=== PATIENT | male | born 1970 | race Caucasian/White ===

== ENCOUNTER 2024-10-03 14:45 | Outpatient (RCR) | payer OTHER, SELFPAY | END 2025-01-31 23:59 | disposition home or self-care (01) | PROVIDERS: PCP Family Medicine; Visit Provider Family Medicine | DX: M54.50 Low back pain, unspecified (principal); Z51.89 Encounter for other specified aftercare | CPT/HCPCS: 97110; 97140; 97162 ==

== ENCOUNTER 2025-01-19 12:02 | Emergency (ER) | payer OTHER, SELFPAY ==
--- OUTSIDE RECORDS SUMMARY | 2025-01-19 12:04 | XMS_ITS | Clinical Summary ---
Author Organization [facility] [employer] [facility] Address [address] [place] [id number] Care Team Providers Care Char Filter Tank Tender Head Name Role Phone ThomasteMichelet garcia MD Primary Care Provider + Allergies No known active allergies Medications sildenafil citrate (VIAGRA) 50 mg tabletIndication s:Erectile dysfunction, unspecified erectile dysfunction type Take 1 Tablet (50 mg) by mouth once daily if needed for Erectile Dysfunction. Take 30 minutes to 4 hours before sexual activity. Max 100mg/24hr. 30 Tablet 11 4 Active rosuvastatin (CRESTOR) 20 mg tabletIndication s:Dyslipidemia, goal LDL below 70 Take 1 Tablet (20 mg) by mouth at bedtime. 90 Tablet 3 4 Active cyclobenzaprine (FLEXERIL) 10 mg tabletIndication s:Muscle spasm of back Take 1 Tablet (10 mg) by mouth at bedtime. 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 MRI lumbar spine Apr 2013. ~ April 2013:L4-L5 right interlaminar epidural steroid injection by Dr. Cruz. Encounters Date Type Department Care Team Description 11/28/2024 Refill [facility] [address] [place] [address] VotelMichelet MD Refill Request (Sildenafil Citrate) from Last 3 Months Immunizations Immunization Administration Dates Next Due Influenza, IIV4 03/22/2023,,05/05/2021,2017,03/21/2016 Influenza, IIV4 (=>6mos) MDV 03/19/2020,04/02/20 Influenza,CCIIV4 PRESERV FREE 09/05/2018 Td (Age >=7 Years) 06/20/2004 Td, Preservative Free (age > = 7 Years) 02/21/2024 Tdap 01/16/2014 Zoster (Shingrix-RZV, recombinant) 02/21/2024 Family History Medical History Relation Name Comments Heart Disease Father [place] and [place]. Good Health Mother Hypertension Mother Relation Name Status Comments Father Alive Mother Alive Social History Tobacco Use Types Packs/Day Years Used Date Smoking Tobacco: Never Smokeless Tobacco: Never Tobacco Cessation:Counseling Given: Yes Alcohol Use Standard Drinks/Week Comments No 0 (1 standard drink = 0.6 oz pur e alcohol) PHQ-2 Answer Date Recorded PHQ-2 TOTAL SCORE 0 03/13/2024 Social Connections Answer Date Recorded Do you often feel lonely or isolated from those around you? 0 02/21/2024 Financial Resource Strain Answer Date R ecorded Difficulty of Paying Living Expenses 3 02/21/2024 Difficulty of Paying Living Expenses Not on file 02/21/2024 Food Insecurity Answer Date Recorded Do you worry your food will run out before you are able to buy more? 1 02/21/2024 Transportation Needs Answer Date Record ed Does lack of transportation keep you from medica l appointments? 1 02/21/2024 Does lack of transportation keep you from work, meetings or getting things that you need? 1 02/21/2024 Housing Stability Answer Date Recorded What is your housing situation today? 1 02/21/2024 Utilities Answer Date Recorded Do you have trouble paying f or utilities (for example, heat, electricity, water, phone)? 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 Gender Identity Not on file Sexual Orientation Not on file Occupation Industry Job Start Date Job End Date [employer] Not on file Not on file Not on file Obstetrics History Last Filed Vital Signs Vital Sign Reading Time Taken Comments Blood Pressure 126/81 07/08/2024 4:30 PM [employer] IN[employer]ER Pulse 73 07/08/2024 4:30 PM [employer] INST[employer]ER Temperature 37.4 C (99.3 F) 02/21/2024 2:13 PM CDT Respiratory Rate 18 07/03/2021 3:22 PM [employer] INST[employer]ER Oxygen Saturation 97% 07/08/2024 4:30 PM [employer] SYSTEM INST[employer]ER Inhaled Oxygen Concentration - - Weight 100.1 kg (220 lb 9.6 oz) 07/08/2024 4:30 PM [employer] INST[employer]ER Height 177.8 cm (5' 10) 03/13/2024 1:44 PM CDT Body Mass Index 31.65 03/13/2024 1:44 PM CDT Plan of Treatment Health Maintenance Due Date Last Done Comments HIV for age 15-65 11/17/1986 Hepatitis C screening for ag e 18-79 11/17/1989 Hepatitis B series for 19+ ( 1 of 3 - 19+ 3-dose series) 11/17/1990 Pneumococcal series for age 50+ (1 of 2 - PCV) 11/17/1990 COVID-19 vaccine series ( season) 2024 05/04/2022, 05/18/2021, 11/04/2020, Additional history exists Zoster (shingles) series for age 50+ (2 of 2) 04/17/2024 02/21/2024 Influenza Vaccine (#1) 2025 3, 03/22/2022, 05/05/2021, Additional history exists BMI (ht and wt on same day) for age 18+ 03/13/2025 03/13/2024, 03/11/2024, 02/21/2024, Additional history exists Depression screening for age 12+ 03/14/2025 03/14/2024, 03/13/2024, 10/12/2022, Additional history exists Colonoscopy through age 75 12/19/2027 12/18/2017, Lipids for age 45-75 05/21/2029 05/21/2024, 02/21/2024, 10/12/2022, Additional history exists Tetanus booster 02/20/2034 02/21/2024, 12/31, 06/20/2004 Procedures Procedure Name Priority Date/Time Associated Diagnosis Comments LIPID PANEL W REFLEX MEASURED LDL Routine 05/21/2024 8:31 AM FIRE CONTROL SYSTEM INSTALLER Dyslipidemia, goal LDL below 70 High coronary artery calcium score COLONOSCOPY DIAGNOSTIC Routine 12/18/2017 12:00 AM CDT Diarrhea, unspecified type from Last 3 Months or Most Recently Relevant to Health Maintenance Results * (ABNORMAL) LIPID PANEL W REFLEX MEASURED LDL (05/21/2024 8:31 AM FIRE CONTROL SYSTEM INSTALLER) CHOLESTEROL, TOTAL 101 <200 mg/dL [facility] HDL CHOLESTEROL 38(L) > OR = 40 mg/dL [facility] TRIGLYCERIDES 72 <150 mg/dL [facility] LDL-CHOLESTEROL 48 mg/dL (calc) [facility] Comment: Reference range: <100 Desirable range <100 mg/dL for primary prevention; <70 mg/dL for patients with CHD or diabetic patients with > or = 2 CHD risk factors. LDL-C is now calculated using the Mikal-Mary calculation, which is a validated novel method providing better accuracy than the Friedewald equation in the estimation of LDL-C. Mikal SS et al. ALEJANDRO. 2013;310(19): 5140-5178 (http://education.[employer]/faq/YBH746) CHOL/HDLC RATIO 2.7 <5.0 (calc) [facility] NON HDL CHOLESTEROL 63 <130 mg/dL (calc) [facility] Comment: For patients with diabetes plus 1 major ASCVD risk factor, treating to a non-HDL-C goal of <100 mg/dL (LDL-C of <70 mg/dL) is considered a therapeutic option. Blood BLOOD SPECIMEN / Unknown 05/21/2024 8:31 AM FIRE CONTROL SYSTEM INSTALLER 05/21/2024 8:34 AM FIRE CONTROL SYSTEM INSTALLER Narrative [facility] - 05/22/2024 4:59 AM FIRE CONTROL SYSTEM INSTALLER FASTING:NO FASTING: NO Michelet Carbajal MD CHEMISTRY Final Re sult [facility] [address] [place] [address], [facility] [address] [place] [address] * COLONOSCOPY DIAGNOSTIC (12/18/2017 12:00 AM CDT) Mahad Cruz GI PROCEDURE ORD Final Res ult from Last 3 Months or Most Recently Relevant to Health Maintenance Insurance [employer] [facility] [employer] Care Teams Char Filter Tank Tender Head Relationship Specialty Start Date End Date Votel, Michelet Edouard MD [address] [place] [address] PCP - General 06/29/06
[2025-01-19 12:15] VITALS: BP 133/90; PULSE 88; RESP 20; TEMP 36.8; O2SAT 98; BMI 31.1
--- NOTE | 2025-01-19 12:24 | ED.WOUNDLAC ---
HPI - Wound/Laceration General Time Seen by Provider: 12:24 Date Seen: 01/19/25 Chief Complaint: Laceration/Wound Stated Complaint: L thumb laceration Time Seen by Provider: 01/19/25 12:24 Source: patient and RN notes reviewed Mode of arrival: ambulatory Limitations: no limitations History of Present Illness HPI narrative: Zohreh is a very pleasant 54-year-old gentleman [id number] with up-to-date tetanus who comes to the emergency room after sustaining an injury to his left thumb. 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 Somehow all that flipped and crushed his left thumb between the bucket in the pole causing lacerations to the bottom and top of his thumb. Immediately he was able to move it. He immediately proceeded to the ER recognizing that this was not something a bandage could fix. Related Data Home Medications ?Medication ?Instructions ?Recorded ?Confirmed rosuvastatin 20 mg tablet 20 mg PO QPM 01/19/25 01/19/25 sildenafil 50 mg tablet 50 - 100 mg PO DAILY PRN 01/19/25 01/19/25 Allergies Allergy/AdvReac Type Severity Reaction Status Date / Time No Known Drug Allergies Allergy Verified 01/19/25 12:12 Exam Narrative: Exam Narrative: Alert and oriented. Very pleasant well-spoken gentleman in no acute distress. Examination of the left from shows flexion extension against resistance to be intact. Sensation is also intact. He has sustained a laceration over the IP joint dorsal surface of the left thumb. This is measuring approximately 1.8 cm. This compromises epidermis and dermis. No underlying structures are seen. On the volar surface he has unfortunately sustained a large laceration which has caused a flap to occur. Distally the laceration starts over the distal phalanx on the lateral aspect. This continues down all the way to the skin over the MCP and then travels medially and up the medial aspect not quite to the IP joint. Epidermis dermis is compromises subcutaneous tissue is easy visualized I do not note any underlying structures however and I do not note any foreign body. Procedure: Wound was soaked in Hibiclens. The wounds were anesthetized with 1% lidocaine. Soaking then occurred again. No foreign bodies were noted. Three sutures of 5 0 Ethilon were placed in interrupted fashion on the dorsal thumb wound. Good wound approximation. Nine sutures of 5 0 Ethilon were placed in interrupted fashion on the volar surface of the thumb. Challenging given the amount of swelling we are noting but wound was approximated to the best of my ability. Const: Vital Signs, click to edit/add: Vital Signs - 24 hr 01/19/25 12:15 Temperature 98.3 F Pulse Rate [Pulse Oximeter] 88 Respiratory Rate 20 Blood Pressure [Ri ght Upper Arm] 133/90 H Pulse Oximetry 98 Oxygen Delivery Me thod Room Air Documenting provider has reviewed patient's vital signs: yes Course Course ED Course: Following suturing will obtain x-ray as description does describe crush injury. Vital Signs Vital signs: Initial Vital Signs Temperature 98.3 F 01/19/25 12:15 Temperature Source Temporal Artery Scan 01/19/25 12:15 Pulse Rate 88 01/19/25 12:15 Respiratory Rate 01/19/25 12:15 Blood Pressure 133/90 H 01/19/25 12:15 Blood Pressure Mean 104 01/19/25 12:15 Pulse Oximetry 98 01/19/25 12:15 Oxygen Delivery Method Room Air 01/19/25 12:15 Vital Signs Temperature 98.3 F 01/19/25 12:15 Pulse Rate 88 01/19/25 12:15 Respiratory Rate 01/19/25 12:15 Blood Pressure 133/90 H 01/19/25 12:15 Pulse Oximetry 98 01/19/25 12:15 Oxygen Delivery Method Room Air 01/19/25 12:15 Temperature 98.3 F 01/19/25 12:15 Pulse Rate 88 01/19/25 12:15 Respiratory Rate 01/19/25 12:15 Blood Pressure 133/90 H 01/19/25 12:15 Pulse Oximetry 98 01/19/25 12:15 Oxygen Delivery Method Room Air 01/19/25 12:15 MDM - Wound/Laceration MDM Narrative Medical decision making narrative: 1. Thumb laceration-patient sustained laceration to both the ventral and dorsal surface. Able to suture back into place. No neurological deficit noted. X-ray showed 2. Disposition-home at this time. Recommend suture removal in 10 days time. Because I was unable to perfectly aligned skin edges due to the amount of swelling, the sutures may need to remain in a full 14 days. We discussed signs and symptoms of infection in the importance of seeking medical attention should they occur. Imaging Data Left thumb x-ray: Attestation: I have reviewed the pertinent imaging results. My impression: By my read no acute fractures. Radiologist's impression: [address] [address] Diagnostic Imaging Report Patient: Zohreh Reich MR#: [id number] : 1970 Acct:[id number] Loc: ED Service Date: 01/19/[address]: Ordering Physician: Bertha Hernandez M.D. Date of Service: 01/19/25 Procedure(s): XR thumb LT Accession Number(s): [id number] cc: Bertha Hernandez M.D.; Michelet Carbajal M.D.~ For Patients: As a result of the Cures Act, medical imaging exams and procedure reports are released immediately into your electronic medical record. You may view this report before your referring provider. If you have questions, please contact your health care provider. INDICATION: Laceration. TECHNIQUE: Finger radiographs 3 views COMPARISON: None FINDINGS: Bones: Alignment is normal. No acute fractures or aggressive bone lesions are identified. Joint spaces: The metacarpophalangeal and interphalangeal joints are normal in appearance. Soft tissues: No radiopaque foreign bodies are noted. IMPRESSION: No acute osseous injuries are identified. Discharge Plan Discharge Clinical Impression: Laceration Patient Disposition: Home, Self-Care Condition: Improved Additional Instructions: Follow-up in 10 days for check to see if sutures can be removed. Monitor for signs of infection. Seek medical attention for fever, increasing redness, red streak up her arm. Ibuprofen or Tylenol as needed for discomfort Prescriptions: No Action sildenafil 50 mg tablet 50 - 100 mg PO DAILY PRN rosuvastatin 20 mg tablet 20 mg PO QPM Follow Up/Referrals: Michelet Carbajal MD [Primary Care Provider, Family Practice] Stand Alone Forms: [employer] Info Instructions
--- NOTE | 2025-01-19 14:06 | CRLHL7_ITS ---
For Patients: As a result of the Cures Act, medical imaging exams and procedure reports are released immediately into your electronic medical record. You may view this report before your referring provider. If you have questions, please contact your health care provider. INDICATION: Laceration. TECHNIQUE: Finger radiographs 3 views COMPARISON: None FINDINGS: Bones: Alignment is normal. No acute fractures or aggressive bone lesions are identified. Joint spaces: The metacarpophalangeal and interphalangeal joints are normal in appearance. Soft tissues: No radiopaque foreign bodies are noted. IMPRESSION: No acute osseous injuries are identified. Dictated by Emmanuel Marie MD @ 01/19/2025 3:03:49 PM (Electronically Signed)
== END 2025-01-19 14:54 | disposition home or self-care (01) ==
PROVIDERS: Emergency Provider Family Medicine; PCP Family Medicine
DX: S61.012A Laceration without foreign body of left thumb without damage to nail, initial encounter (principal); W26.9XXA Contact with unspecified sharp object(s), initial encounter
CPT/HCPCS: 12001; 73140; 99283; 99284